=== PATIENT | female | born 2000 | race Caucasian/White ===

== ENCOUNTER 2025-05-25 13:18 | Outpatient (REF) | payer MEDICAID, SELFPAY ==
--- NOTE | 2025-05-25 13:23 | EMG_ITS ---
Chief complaint: About 2 months of numbness left 4th and 5th digits. Noted atrophy of left FDI and weakness on left 3rd-5th digits, with these fingers flexed in. Reason for referral: Evaluate for ulnar neuropathy Referred by: Kailey REMY Procedure done: Left upper extremity NCS/EMG Precautions and/or limitations: None The limb temperature was monitored continuously and remained between 32-36 degrees C during the performance of the NCS. Ulnar motor NCS was performed with moderate elbow flexion between 70-90 degrees, with across-elbow distance of 10 cm. Nerve Conduction Studies Anti Sensory Summary Table ?Stim Site NR Onset (ms) Norm Onset (ms) Peak (ms) Norm Peak (ms) O-P Amp (?V) Norm O-P Amp Site1 Site2 Delta-0 (ms) Dist (cm) Laureano (m/s) Norm Laureano (m/s) Left Median Anti Sensory (2nd Digit) Wrist ? 2.4 3.2 <3.6 66.3 >10 Wrist 2nd Digit 2.4 14.0 58 Left Radial Anti Sensory (Thumb) Forearm ? 1.5 2.1 <3.1 40.2 Forearm Thumb 1.5 0.0 Left Ulnar Anti Sensory (5th Digit) Wrist ? 2.8 3.6 <3.7 26.1 >15.0 Wrist 5th Digit 2.8 14.0 50 Motor Summary Table ?Stim Site NR Onset (ms) Norm Onset (ms) O-P Amp (mV) Norm O-P Amp iAmp (mV) Amp (1st) (%) Site1 Site2 Delta-0 (ms) Dist (cm) Laureano (m/s) Norm Laureano (m/s) Left Median Motor (Abd Poll Brev) Wrist ? 3.0 <3.9 11.9 >4.5 15.6 100.0 Elbow Wrist 3.6 20.5 57 >45 Elbow ? 6.6 11.9 15.8 100.0 Left Ulnar Motor (Abd Dig Minimi) Wrist ? 2.9 <3.0 4.2 >5 5.2 100.0 B Elbow Wrist 3.1 18.0 58 >45 B Elbow ? 6.0 4.4 5.6 104.8 A Elbow B Elbow 5.7 10.0 18 >45 A Elbow ? 11.7 0.8 0.9 19.0 EMG ?Side Muscle Nerve Root Ins Act Fibs Psw Amp Dur Poly Recrt Int Pat Comment Left 1stDorInt Ulnar C8-T1 Incr 1+ 1+ Nml Nml 0 Nml Complete Can not activate Left FlexCarpiUln Ulnar C8,T1 Incr 1+ 1+ Nml Nml 0 Nml Complete Left Biceps Musculocut C5-6 Nml Nml Nml Nml Nml 0 Nml Complete Left Triceps Radial C6-7-8 Nml Nml Nml Nml Nml 0 Nml Complete Left Deltoid Axillary C5-6 Nml Nml Nml Nml Nml 0 Nml Complete Paraspinal EMG ?Side Muscle Nerve Root Ins Act Fibs Psw Comment Left Cervical Upper Rami Nml Nml Nml Left Cervical Mid Rami Nml Nml Nml Left Cervical Lower Rami Nml Nml Nml FINDINGS: Left ulnar motor nerve showed normal distal latency, small amplitudes with further drop in amplitude above elbow and slow conduction velocity across the elbow. All other nerves tested were within normal. Concentric needle EMG was performed in selected muscles of the left upper extremity and cervical paraspinals. Study revealed signs of electric abnormalities as shown in the table above. Left FDI and FCU showed increased insertional activity, PSWs and fibrillations. No denervation seen on paraspinals. IMPRESSION: 1. This is an abnormal study. 2. 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 3. There is no electrodiagnostic evidence for median neuropathy, brachial plexopathy, or cervical radiculopathy. Thank you for your kind referral. Mai Aguirre MD, ANDREA Board Certified, [place] [employer] (ABPMR) Board Certified, [place] [employer] Electro[employer] (ABEM) [place] [id number] [facility]
== END 2025-05-25 13:19 | disposition home or self-care (01) ==
LOC: HO.NEURO 13:18
PROVIDERS: PCP Internal Medicine; Visit Provider Physician Assistant
DX: R29.898 Other symptoms and signs involving the musculoskeletal system (principal)
CPT/HCPCS: 95886; 95909

== ENCOUNTER → 2025-05-25 13:23 | Outpatient (BNV) | payer MEDICAID, SELFPAY | PROVIDERS: PCP Internal Medicine; Visit Provider Physical Medicine & Rehabilitation | DX: G58.8 Other specified mononeuropathies (principal) | CPT/HCPCS: 95886; 95909 ==